=== PATIENT | male | born 1980 | race Hispanic/Latino ===

== ENCOUNTER 2023-06-18 16:21 | Emergency (ER) | payer OTHER, SELFPAY ==
[2023-06-18 16:22] VITALS: BP 202/124
[2023-06-18] MEDS: TORADOL 30 MG IV (19:43)
[2023-06-18] MEDS: NSS 1000 IV (19:43)
[2023-06-18] MEDS: TYLENOL 1000 MG PO (19:44)
[2023-06-18] MEDS: REGLAN 10 MG IV (19:44)
[2023-06-18] MEDS: BENADRYL 50 MG IV (19:44)
[2023-06-18 19:54] LABS: % Basophils 0.3 % (0-2); % Eosinophils 2.5 % (0-6); % Immature Granulocytes 0.2 % (0-0.5); % Monocytes 7.3 % (1.7-9.3); % Neutrophils 57.7 % (42.2-75.2); Absolute Eosinophils 0.2 10^3/uL (0-0.7); Absolute Lymphocytes 2.1 10^3/uL (1.2-3.4); Absolute Monocytes 0.5 10^3/uL (0.1-0.6); Absolute Neutrophils 3.7 10^3/uL (1.4-6.5); Hematocrit 42.1 % (39.0-52.0); Hemoglobin 15.1 g/dL (13.0-18.0); Mean Corp Hgb Conc. 35.9 g/dL (33.0-37.0); Mean Corpuscular Hgb 29.9 pg (27.0-31.0); Mean Corpuscular Volume 83.4 fL (80.0-94.0); Mean Platelet Volume 10.7 fL (7.4-10.4); Nucleated Red Blood Cells % 0 % (-); Platelet Count 255 10^3/uL (130-400); Red Blood Cell Count 5.05 10^6/uL (4.70-6.10); White Blood Cell Count 6.5 10^3/uL (4.8-10.8)
[2023-06-18 20:02] LABS: Erythrocyte Sed Rate 4 mm/hour (0-20)
[2023-06-18] MEDS: DECADRON 10 MG IV (20:14)
[2023-06-18 20:22] LABS: ALT (SGPT) 46 U/L (0-50); AST (SGOT) 33 U/L (17-59); Albumin 4.9 g/dl (3.5-5.0); Alkaline Phosphatase 66 U/L (38-126); Blood Urea Nitrogen 17 mg/dl (9-20); Carbon Dioxide 27 mmol/L (22-30); Chloride 98 mmol/L (98-107); Glucose 112 mg/dl (70-99); Potassium 3.7 mmol/L (3.5-5.1); Sodium 136 mmol/L (135-145); Total Bilirubin 1.7 mg/dl (0.2-1.3); Total Protein 7.9 g/dl (6.3-8.2); eGFR > 60.00
[2023-06-18 20:29] VITALS: BP 150/100
--- NOTE | 2023-06-18 21:56 | ED.GENMED ---
History of Present Illness
General
Chief Complaint: Headache
Source: patient and spouse
Exam Limitations: none
Time Seen by Provider: 06/18/23 18:36
Nursing documentation reviewed up to this point in time: agreed with
Travel History
Have you had any contact with someone who has COVID-19?: No
Do you have any symptoms of coronavirus? Fever > 100 degrees, chills, cough, shortness of breath, sore throat, loss of taste or smell, muscle aches, or headache?: No
History of Present Illness
History of Present Illness:
42-year-old male with past medical history of previous cluster headaches migraines hypertension presenting to the emergency department today with intermittent headache over the past 2 weeks he has tried to follow-up with his neurologist but unable
to make an appointment for 2 months. Has been trying Reglan and naproxen at home without relief. Denies any chest pain shortness of breath fevers neck stiffness. Denies any changes in vision. Does occasionally have nasal congestion and drainage.
He claims this feels very similar to previous diagnosed cluster headaches
Past History
Past History
ED Past Medical History: HTN, Psychiatric (Anxiety) and Other (Cluster migraine headaches, seasonal allergies)
ED Past Surgical History: Other (Hernia repair)
Social History
Tobacco: Non-smoker
Alcohol: Occasional (Rare alcohol use)
Drug: None
Personal:
Living: with family
Employment: Employed
Family History
Family History: Hypertension and Other (Noncontributory)
Review of Systems
Review of Systems
Allergies reviewed?: Yes
All Other Systems: ROS reviewed and negative except as documented in HPI and ROS
Phy Exam
Physical Exam
Physical Exam:
GENERAL: Alert , in no apparent distress
EYE: pupils equal and reactive
NECK: Supple, no significant adenopathy.
ENT: o/p clr, mmm.
CARDIAC: Regular rate and rhythm .
LUNGS: Clear breath sounds bilaterally, no acute respiratory distress, no wheezes/rales/rhonchi
ABDOMEN: Soft, without focal tenderness, no r/g, no cvat
NEUROLOGICAL: Alert and oriented, no focal neuro deficits 5 out of 5 upper and lower extremity strength normal sensation when palpating bilaterally normal finger-nose and [id number] no pronator drift
SKIN: Warm and dry, skin intact.
MUSCULOSKELETAL: No edema, well perfused.
PSYCH: Normal and appropriate interaction.
Course
Orders/Labs/Results
Orders:
Orders
06/18/23 19:26
0.9% Sodium Chloride 1000 ml [Nss] 1,000 ml IV BOLUS
Acetaminophen [Tylenol] 1,000 mg PO NOW STA
Diphenhydramine [Benadryl] 50 mg IV NOW STA
Ketorolac [Toradol] 30 mg IV NOW STA
Metoclopramide [Reglan] 10 mg IV NOW STA
06/18/23 19:27
CT Head W/o Iv Contrast Urgent
Comment:
Reason For Exam: ARDON, right side, facial tingling 2 weeks
06/18/23 19:42
Complete Blood Count/With Diff Urgent
Comprehensive Metabolic Panel Urgent
Erythrocyte Sed Rate Urgent
Lyme Progressive Urgent
06/18/23 20:00
Dexamethasone Sod Phosphate [Decadron] 10 mg IV NOW STA
Abnormal Lab Results
06/18/23
19:42
MPV 10.7 H fL
(7.4-10.4)
Glucose 112 H mg/dl
(70-99)
Total Bilirubin 1.7 H mg/dl
(0.2-1.3)
06/18/23 19:42
06/18/23 19:42
Vital Signs
Initial and Last Documented VS:
Initial Vital Signs
Temp Pulse Resp BP Pulse Ox
98.2 F 78 18 202/124 98
06/18/23 16:22 06/18/23 16:22 06/18/23 16:22 06/18/23 16:22 06/18/23 16:22
Last Documented Vital Signs
Temp Pulse Resp BP Pulse Ox
98.2 F 74 18 150/100 98
06/18/23 16:22 06/18/23 20:29 06/18/23 16:22 06/18/23 20:29 06/18/23 16:22
MDM/Problems Addressed
MDM/Problems Addressed:
42-year-old male presenting to the emergency department today with concerns of headache intermittent over the past 2 weeks. Here patient appears somewhat uncomfortable on exam but normal neurologic evaluation. Normal pupillary reaction normal
extraocular eye movements. Patient afebrile blood pressure elevated but otherwise vital signs are normal. Labs obtained and unremarkable head CT without acute abnormalities. Blood pressure improving after receiving medications patient claims that
symptoms are significantly improved. Patient was advised for close outpatient follow-up and return precautions given.
*Critical Care Note
Total Time (30-74mins, 75-104mins- exclusive of procedures): Not Applicable
ED Attending Note
-
Portions of this chart may have been created with voice recognition software.� Occasional wrong word or��sound alike� substitutions may have occurred due to the inherent limitations of voice recognition software.
Discharge Plan
Departure
Patient Disposition: Home (Routine Discharge)
Date of Disposition: 06/18/23
Time of Disposition: 21:58
Patient with high blood pressure during this ER visit?: No
Condition: Good
Covid-19: Not Applicable
Discharge Problem:
Headache
Instructions: Headache, Adult (DC)
Prescriptions:
New
methylprednisolone [Methylpred DP] 4 mg tablets,dose pack
See Rx Instructions .ROUTE .COMPLEX Qty: 21 0RF
Rx Instructions:
for 6 days
No Action
Hydrochlorothiazide
1 cap PO DAILY
Lexapro:
1 tab PO DAILY
Singulair:
1 tab PO DAILY
amlodipine 5 MG tablet
5 mg PO DAILY Qty: 30 0RF
prednisone 10 MG tablet
10 mg PO .TAPER Qty: 45 0RF
Rx Instructions:
Take 50mg daily x3days, 40mg daily x3days,
30mg daily x3days, 20mg daily x3days,
10mg daily x3days
ondansetron 4 mg Tablet,Disintegrating
4 mg PO BIDPRN PRN (Reason: nausea/vomiting) Qty: 10 0RF
ascorbic acid (vitamin C) [Vitamin C] 1,000 mg Tablet
1,000 mg PO BID Qty: 56 0RF
Rx Instructions:
Take 1,000 mg twice a day for 14 days
cholecalciferol (vitamin D3) [Vitamin D3] 25 mcg (1,000 unit) Tablet
50 mcg PO DAILY Qty: 28 0RF
Rx Instructions:
Take 2,000 units daily for 14 days
albuterol sulfate 90 mcg/actuation aerosol powdr breath activated
2 inh inhalation Q6H PRN (Reason: shortness of breath or wheezing) Qty: 1 0RF
prednisone 10 mg Tablet
See Rx Instructions .ROUTE .COMPLEX Qty: 30 0RF
Rx Instructions:
Take By Mouth:
40 mg daily x3 days, 30 mg daily x3 days,
20 mg daily x3 days, 10 mg daily x3 days.
azithromycin [Zithromax] 250 mg tablet
250 mg PO DAILY Qty: 6 0RF
Referrals:
Junaid Omalley MD [Active] - Follow up in 5-7 days
Cortez Hernandes PA-C [Family Provider] -
Activity Restrictions/Additional Instructions:
You came to the emergency department today with concerns of headache. Here you had reassuring evaluation. Please follow-up closely as an outpatient. Return to the emergency department for any worsening, new or concerning symptoms.
Interventions
Interventions:
*Risk Screen - Suicide Last Done: 06/18/23 16:22
*General Assessment Last Done: 06/18/23 16:22
*Neglect/Abuse Screening Last Done: 06/18/23 19:48
ED- Fall Risk Assessment Last Done: 06/18/23 19:48
*ED COVID-19 Vaccine History Last Done: 06/18/23 16:22
ED- Neurological Assessment Last Done: 06/18/23 17:37
[2023-06-22 15:49] LABS: Lyme Antibody Screen, EIA Negative (Negative)
== END 2023-06-18 22:02 | disposition home or self-care (01) ==
LOC: EMR 16:21
PROVIDERS: Physician Assistant; EMERGENCY PHYSICIAN Emergency Medicine; FAMILY PHYSICIAN Physician Assistant Medical
DX: R51.9 Headache, unspecified (principal); I10 Essential (primary) hypertension; F41.9 Anxiety disorder, unspecified; Z82.49 Family history of ischemic heart disease and other diseases of the circulatory system
CPT/HCPCS: 99284; 96374; 96375; 96361; 70450; 80053; 85025; 85652; 86618

== ENCOUNTER 2024-09-06 18:39 | Emergency (ER) | payer BC, SELFPAY ==
[2024-09-06 18:47] VITALS: BP 173/103
--- NOTE | 2024-09-06 19:03 | ED.GENMED ---
History of Present Illness
General
Chief Complaint: Chest Pain
Source: patient
Exam Limitations: none
Time Seen by Provider: 09/06/24 19:02
History of Present Illness
History of Present Illness:
See MDM
Past History
Past History
ED Past Medical History: HTN, Psychiatric (Anxiety) and Other (Cluster migraine headaches, seasonal allergies)
ED Past Surgical History: Other (Hernia repair)
Social History
Tobacco: Non-smoker
Alcohol: Occasional (Rare alcohol use)
Drug: None
Personal:
Living: with family
Employment: Employed
Family History
Family History: Hypertension and Other (Noncontributory)
Phy Exam
Physical Exam
Physical Exam:
See MDM
Scores
[id number] Score for Afib Stroke Risk
Age in Years (65=0, 65-74=1, >/=75=2): <65
Sex (Female=+1): Male
Congestive Heart Failure History (Yes=+1): No
Hypertension History (Yes=+1): Yes
Stroke/TIA/Thromboembolism History (Yes=+2): No
Vascular Disease History (Yes=+1): No
Diabetes Mellitus (Yes=+1): No
Score: 1
Anticoagulation Recommendations: Consider anticoagulation (as validated in nonvalvular fib)
Heart Score for Chest Pain Patients
STEMI patient?: Not applicable
Course
Orders/Labs/Results
Orders:
Orders
09/06/24 18:41
EKG [Electrocardiogram (*1)] Urgent
Reason for Study: Chest Pain
EKG- Treatment ONCE
09/06/24 19:03
Diltiazem HCl [Cardizem] 20 mg IV NOW STA
09/06/24 19:24
Complete Blood Count/With Diff Urgent
Comprehensive Metabolic Panel Urgent
Free T4 Urgent
Magnesium Urgent
TSH Reflex To Free T4 Urgent
09/06/24 21:24
Metoprolol Xl [Toprol Xl] 25 mg PO NOW STA
Abnormal Lab Results
09/06/24
19:24
MPV 11.2 H fL
(7.4-10.4)
Glucose 105 H mg/dl
(70-99)
Total Bilirubin 1.4 H mg/dl
(0.2-1.3)
Albumin 5.1 H g/dl
(3.5-5.0)
TSH (Reflex) 5.26 H uIU/ml
(0.47-4.68)
09/06/24 19:24
09/06/24 19:24
Vital Signs
Initial and Last Documented VS:
Initial Vital Signs
Temp Pulse Resp BP Pulse Ox
97.5 F 59 16 173/103 97
09/06/24 18:47 09/06/24 18:47 09/06/24 18:47 09/06/24 18:47 09/06/24 18:47
Last Documented Vital Signs
Temp Pulse Resp BP Pulse Ox
97.5 F 114 20 150/108 97
09/06/24 18:47 09/06/24 21:15 09/06/24 21:15 09/06/24 21:00 09/06/24 21:15
MDM/Problems Addressed
Differential Diagnosis Includes:
HPI and MDM Narrative:
44-year-old male presenting for evaluation of palpitations and shortness of breath. Has been apparently on and off for the past 3 weeks. He eventually followed up with his PCP today and diagnosed with new onset A-fib. Given his prior history of
hypertension, patient has a [id number] score 1. On arrival, patient brought back to the treatment room immediately when he is found to be in A-fib with RVR. Will obtain basic blood work and thyroid function testing. Will give dose of IV
Cardizem and attempt to rate control. Patient is otherwise stable and not a candidate for synchronized cardioversion
Physical exam
General: Well appearing and non-toxic
HEENT: protecting airway
Neck: appears supple
CV: No evidence of cyanosis. Tachycardic and irregular
Resp: No accessory muscle use
Abd: Non-distended
Extremities: No deformities
Neuro: alert
Psych: Normal affect
Skin: Intact
Problems Addressed including Acute and Chronic Conditions affecting care:
1. New onset A-fib
Acuity: acute
Prognosis: unstable
Details: Given the uncontrolled heart rate, will give IV Cardizem and attempt to chemically cardiovert.
Updates
After dose of IV Cardizem, heart rate did go as low as 90s. Patient states he is feeling much better. TSH mildly elevated but free T4 normal. After prolonged observation, heart rate did go up to the 110s. However, patient states he feels much
better. Patient states he states he feels like he can go home this condition. Will start Toprol. Will write for Eliquis given the persistent A-fib and discussed outpatient follow-up with PCP and cardiology
Differential Diagnosis (but not limited to): Hypothyroidism, new onset A-fib
Testing considered: Troponin but would likely be elevated due to the uncontrolled tachycardia
Drug therapy (if applicable): OTC meds, please see d/c instruction regarding Rx drugs
Amount and/or Complexity of Data Reviewed
Clinical info obtained from: Patient
External data reviewed: N/A
Labs I independently reviewed (but not limited to): Mildly elevated TSH
Radiology: N/A
Pulse Ox: not hypoxic
EKG independently reviewed: A-fib with RVR, normal axis, no STEMI
Before School Babysitter: A-fib with RVR
Critical Care: The high probability of a clinically significant, sudden or life threatening deterioration of the cardiovascular system(s) required my full and direct attention, intervention and personal management. The aggregate critical care time
was 33 minutes. This time is in addition to time spent performing reported procedures but includes the following:
[x] Data Review and interpretation
[x] Patient assessment and monitoring of vital signs
[x] Documentation
[x] Medication orders and management
Risk of Complication:
Social Determinants of health: Good social support
Discussed with other providers: N/A
Escalation of Care includes Admit/Obs: After being observed in the Emergency Department, pt stable for discharge.
Occasional wrong word or 'sound a like' substitutions may have occurred due to the inherent limitations of voice recognition software. Read the chart carefully and recognize, using context, where substitutions have occurred.
*Critical Care Note
Total Time (30-74mins, 75-104mins- exclusive of procedures): 33 min
ED Attending Note
-
Portions of this chart may have been created with voice recognition software.� Occasional wrong word or��sound alike� substitutions may have occurred due to the inherent limitations of voice recognition software.
Discharge Plan
Departure
Patient Disposition: Home (Routine Discharge)
Date of Disposition: 09/06/24
Time of Disposition: 21:25
Patient with high blood pressure during this ER visit?: Yes
Discharge Problem:
New onset a-fib
Instructions: Atrial fibrillation
Prescriptions:
New
metoprolol succinate [Toprol XL] 25 mg tablet extended release 24 hr
25 mg PO BID Qty: 60 0RF
Eliquis 5 mg tablet
5 mg PO BID Qty: 60 0RF
No Action
Hydrochlorothiazide
1 cap PO DAILY
Lexapro:
1 tab PO DAILY
Singulair:
1 tab PO DAILY
amlodipine 5 MG tablet
5 mg PO DAILY Qty: 30 0RF
prednisone 10 MG tablet
10 mg PO .TAPER Qty: 45 0RF
Rx Instructions:
Take 50mg daily x3days, 40mg daily x3days,
30mg daily x3days, 20mg daily x3days,
10mg daily x3days
ondansetron 4 mg Tablet,Disintegrating
4 mg PO BIDPRN PRN (Reason: nausea/vomiting) Qty: 10 0RF
ascorbic acid (vitamin C) [Vitamin C] 1,000 mg Tablet
1,000 mg PO BID Qty: 56 0RF
Rx Instructions:
Take 1,000 mg twice a day for 14 days
cholecalciferol (vitamin D3) [Vitamin D3] 25 mcg (1,000 unit) Tablet
50 mcg PO DAILY Qty: 28 0RF
Rx Instructions:
Take 2,000 units daily for 14 days
albuterol sulfate 90 mcg/actuation aerosol powdr breath activated
2 inh inhalation Q6H PRN (Reason: shortness of breath or wheezing) Qty: 1 0RF
prednisone 10 mg Tablet
See Rx Instructions .ROUTE .COMPLEX Qty: 30 0RF
Rx Instructions:
Take By Mouth:
40 mg daily x3 days, 30 mg daily x3 days,
20 mg daily x3 days, 10 mg daily x3 days.
azithromycin [Zithromax] 250 mg tablet
250 mg PO DAILY Qty: 6 0RF
methylprednisolone [Methylpred DP] 4 mg tablets,dose pack
See Rx Instructions .ROUTE .COMPLEX Qty: 21 0RF
Rx Instructions:
for 6 days
Referrals:
Elroy Zaidi MD [Active, Cardiology]
Cortez Hernandes PA-C [Family Provider]
Activity Restrictions/Additional Instructions:
Please return for any worsening symptoms.
You may return at any time if you have further concerns.
Please follow up with your doctor at the first available appointment, preferably this week.
Please make an appointment to see the field radio technician at the first available appointment.
Thank you for choosing [facility].
Interventions
Interventions:
*Risk Screen - Suicide Last Done: 09/06/24 18:47
*General Assessment Last Done: 09/06/24 18:47
*Neglect/Abuse Screening Last Done: 09/06/24 19:35
*ED- Fall Risk Assessment Last Done: 09/06/24 19:35
*ED COVID-19 Vaccine History Last Done: 09/06/24 19:35
ED- Cardiac Assessment Last Done: 09/06/24 19:37
Discharge Date and Time
Print Language: BELARUSIAN
[2024-09-06 19:19] VITALS: BP 134/108
[2024-09-06] MEDS: CARDIZEM 20 MG IV (19:25)
[2024-09-06 19:30] VITALS: BP 139/90
[2024-09-06 19:35] VITALS: BMI 38.7
[2024-09-06 19:43] LABS: % Basophils 0.5 % (0-2); % Eosinophils 2.8 % (0-6); % Immature Granulocytes 0.2 % (0-0.5); % Lymphocytes 27.7 % (20.5-51.1); % Monocytes 7.4 % (1.7-9.3); % Neutrophils 61.4 % (42.2-75.2); Absolute Eosinophils 0.2 10^3/uL (0-0.7); Absolute Lymphocytes 1.6 10^3/uL (1.2-3.4); Absolute Monocytes 0.4 10^3/uL (0.1-0.6); Absolute Neutrophils 3.5 10^3/uL (1.4-6.5); Hematocrit 42.5 % (39.0-52.0); Hemoglobin 14.7 g/dL (13.0-18.0); Mean Corp Hgb Conc. 34.6 g/dL (33.0-37.0); Mean Corpuscular Hgb 29.8 pg (27.0-31.0); Mean Corpuscular Volume 86.2 fL (80.0-94.0); Mean Platelet Volume 11.2 fL (7.4-10.4); Nucleated Red Blood Cells % 0 % (-); Platelet Count 239 10^3/uL (130-400); Red Blood Cell Count 4.93 10^6/uL (4.70-6.10); Red Cell Dist. Width 13.6 % (11.5-14.5); White Blood Cell Count 5.7 10^3/uL (4.8-10.8)
[2024-09-06 20:00] VITALS: BP 132/102
[2024-09-06 20:11] LABS: ALT (SGPT) 35 U/L (0-50); AST (SGOT) 26 U/L (17-59); Albumin 5.1 g/dl (3.5-5.0); Alkaline Phosphatase 58 U/L (38-126); Blood Urea Nitrogen 19 mg/dl (9-20); Calcium 9.9 mg/dl (8.4-10.2); Carbon Dioxide 27 mmol/L (22-30); Chloride 102 mmol/L (98-107); Estimated Creatinine Clearance > 125 ml/min; Glucose 105 mg/dl (70-99); Magnesium 1.8 mg/dl (1.6-2.3); Potassium 4.2 mmol/L (3.5-5.1); Sodium 141 mmol/L (135-145); Total Bilirubin 1.4 mg/dl (0.2-1.3); eGFR > 60.00
[2024-09-06 20:30] VITALS: BP 156/106
[2024-09-06 20:30] LABS: TSH Reflex To Free T4 5.26 uIU/ml (0.47-4.68)
[2024-09-06 20:59] LABS: Free T4 1.23 ng/dl (0.78-2.19)
[2024-09-06 21:00] VITALS: BP 150/108
[2024-09-06] MEDS: TOPROL XL 25 MG PO (21:38)
== END 2024-09-06 21:50 | disposition home or self-care (01) ==
LOC: EMR 18:39
PROVIDERS: EMERGENCY PHYSICIAN Student in an Organized Health Care Education/Training Program; FAMILY PHYSICIAN Physician Assistant Medical
DX: I48.91 Unspecified atrial fibrillation (principal); I10 Essential (primary) hypertension; F41.9 Anxiety disorder, unspecified; G43.909 Migraine, unspecified, not intractable, without status migrainosus; Z88.8 Allergy status to other drugs, medicaments and biological substances; Z91.048 Other nonmedicinal substance allergy status
CPT/HCPCS: 99291; 96374; 80053; 83735; 84439; 84443; 85025; 93005